=== PATIENT | female | born 1985 | race Hispanic/Latino ===

== ENCOUNTER 2017-09-26 22:39 | Emergency (ER) | payer MEDICAID ==
[2017-09-26 22:47] VITALS: BMI 28.1
[2017-09-26] MEDS ORDERED: DiphenhydrAMINE 50 mg/ml Inj IVP STA (22:51)
[2017-09-26 22:52] VITALS: RESP 18; TEMP 99; O2SAT 99
--- NOTE | 2017-09-26 22:54 | ED PDOC ---
Arrival/HPI - General Time Seen by Provider: 09/26/17 22:48 Historian: Patient - History of Present Illness Narrative History of Present Illness (Text): 09/26/17 22:45 32 year old female, NKDA, no known food allergies, who presents to the Emergency department complaining of left elbow area of skin swelling, hot sensation, and itching after she was bitten by an insect yesterday. Patient denies any difficulty bending/extending left elbow, fever, or chills. Patient states the area feels itchy and hot with pain, no numbness or tingling, no palpitation, no other medical or psychological complaints. Symptom Onset: Gradual Symptom Course: Unchanged Activities at Onset: Light Context: Home Past Medical History - Provider Review Nursing Documentation Reviewed: Yes Family/Social History - Physician Review Nursing Documentation Reviewed: Yes Family/Social History: Unknown Family HX Allergies/Home Meds Allergies/Adverse Reactions: Allergies aspirin Allergy (Verified 09/26/17 22:50) RASH Review of Systems - Physician Review All systems were reviewed & negative as marked: Yes - Review of Systems Constitutional: absent: Fatigue, Fevers Eyes: absent: Vision Changes ENT: absent: Hearing Changes Respiratory: absent: SOB, Cough Cardiovascular: absent: Chest Pain Gastrointestinal: absent: Abdominal Pain, Nausea, Vomiting Skin: Rash, Pruritis, Skin Lesions, Cellulitis. absent: Laceration, Abscess, Ulcer Neurological: absent: Headache, Dizziness Psychiatric: absent: Anxiety, Depression Physical Exam Vital Signs Reviewed: Yes Vital Signs Temp Pulse Resp BP Pulse Ox 09/26/17 22:50 99.0 F 75 18 129/85 99 Temperature: Afebrile Blood Pressure: Normal Pulse: Regular Respiratory Rate: Normal Appearance: Positive for: Well-Appearing, Non-Toxic, Comfortable Pain Distress: Mild Mental Status: Positive for: Alert and Oriented X 3 - Systems Exam Head: Present: Atraumatic, Normocephalic Pupils: Present: PERRL Extroacular Muscles: Present: EOMI Conjunctiva: Present: Normal Mouth: Present: Moist Mucous Membranes Neck: Present: Normal Range of Motion Respiratory/Chest: Present: Clear to Auscultation, Good Air Exchange. No: Respiratory Distress, Accessory Muscle Use Cardiovascular: Present: Regular Rate and Rhythm, Normal S1, S2. No: Murmurs Abdomen: No: Tenderness, Distention, Peritoneal Signs Back: Present: Normal Inspection Upper Extremity: Present: Normal Inspection. No: Cyanosis, Edema Lower Extremity: Present: Normal Inspection. No: Edema Neurological: Present: GCS=15, CN II-XII Intact, Speech Normal Skin: Present: Warm, Dry, Rashes (Lt. dorsal distal humeral near elbow region noted to have patch celluitis blachable erythematous approx. [id number] with no bony tenderness, FROM without limitation, sensation intact, motor 5/5, +radial pulse, capillary refill< 2 seconds, neurovascular intact. ), Normal Color Psychiatric: Present: Alert, Oriented x 3, Normal Insight, Normal Concentration Medical Decision Making ED Course and Treatment: 09/26/17 22:45 Impression: 32 year old female complaining of left elbow area of skin swelling, itching, and hot sensation s/p insect bite. Plan: -- Labs -- IV Benadryl, Decadron, Ancef -- Reassess and disposition 09/27/17 00:02 -Urine hcg is negative -Lab show no acute findings, no elevation of wbc -Pt. feels better with swelling/redness/pain decrease with IV medication. -Skin cellulitis traced by me for follow up and recheck in 2 days. -Discharge home with keflex, topical steroid cream, zyrtec, follow up with your own pmd within 2 days for wound check, return to the ER for any new or worsening signs or symptoms. - Lab Interpretations Lab Results: 09/26/17 23:44 Lab Results 09/26/17 23:44: WBC 9.0, RBC 4.41, Hgb 12.9, Hct 37.3, MCV 84.6, MCH 29.3, MCHC 34.6, RDW 13.0, Plt Count 244, MPV 9.8, Gran % 50.4, Lymph % (Auto) 42.8 H, [place] % (Auto) 4.0, Eos % (Auto) 2.7, Baso % (Auto) 0.1, Gran # 4.51, Lymph # ( Auto) 3.8 H, [place] # (Auto) 0.4, Eos # (Auto) 0.2, Baso # (Auto) 0.01 - Medication Orders Current Medication Orders: Discontinued Medications Dexamethasone (Decadron Inj) 8 mg IVP STAT STA Stop: 09/26/17 22:52 Last Admin: 09/26/17 23:14 Dose: 8 mg IVP Administration Document 09/26/17 23:14 SS (Rec: 09/26/17 23:14 SS [id number]) Charges for Administration # of IVP Administrations 1 Diphenhydramine HCl (Benadryl) 50 mg IVP STAT STA Stop: 09/26/17 22:52 Last Admin: 09/26/17 23:14 Dose: 50 mg IVP Administration Document 09/26/17 23:14 SS (Rec: 09/26/17 23:14 SS [id number]) Charges for Administration # of IVP Administrations 1 Cefazolin Sodium (Ancef 1gm In Ns) 1 gm in 100 mls @ 100 mls/hr IVPB STAT STA Stop: 09/26/17 23:56 Last Admin: 09/26/17 23:14 Dose: 100 mls/hr eMAR Start Stop Document 09/26/17 23:14 SS (Rec: 09/26/17 23:15 SS [id number]) Intravenous Solution Start Date 09/26/17 Start Time 23:14 End Date 09/27/17 End time 00:14 Total Infusion Time 60 - PA / [employer] / Resident Statement MD/DO has reviewed & agrees with the documentation as recorded. - Scribe Statement The provider has reviewed the documentation as recorded by the August Miner Provider Scribe Attestation: All medical record entries made by the Scribe were at my direction and personally dictated by me. I have reviewed the chart and agree that the record accurately reflects my personal performance of the history, physical exam, medical decision making, and the department course for this patient. I have also personally directed, reviewed, and agree with the discharge instructions and disposition. Disposition/Present on Arrival - Present on Arrival Any Indicators Present on Arrival: No History of DVT/PE: No History of Uncontrolled Diabetes: No Urinary Catheter: No History of Decub. Ulcer: No - Disposition Have Diagnosis and Disposition been Completed?: Yes Diagnosis: Insect bite, Cellulitis Disposition: HOME/ ROUTINE Disposition Time: 00:04 Patient Plan: Discharge Condition: IMPROVED Discharge Instructions (ExitCare): Cellulitis (ED) Additional Instructions: -Discharge home with keflex, topical steroid cream, zyrtec, tylenol for pain at home, follow up with your own pmd within 2 days for wound check, return to the ER for any new or worsening signs or symptoms. Prescriptions: Cephalexin [Keflex] 500 mg PO QID #32 capsule Cetirizine HCl [Zyrtec] 10 mg PO DAILY PRN #10 tab.rapdis PRN Reason: Other Hydrocortisone 1% Cream [Cortizone 1% Cream] 1 appl TP BID #30 g Referrals: [facility] [place] - Follow up with primary Forms: WORK NOTE
[2017-09-26] MEDS ORDERED: ceFAZolin 1 gm in NS 1 GM/100 ML BAG IVPB STA (22:57)
[2017-09-26] MEDS ORDERED: Dexamethasone 4 mg/1 ml ONE (23:04)
[2017-09-26 23:55] LABS: BASO # 0.01 K/mm3 (0.0-2.0); BASO % 0.1 % (0.0-3.0); EOS # 0.2 (0.0-0.7); EOS % 2.7 % (1.5-5.0); GRAN # 4.51 (1.4-6.5); GRAN % 50.4 % (50.0-68.0); HEMOGLOBIN 12.9 g/dL (12.0-16.0); LYMPH # 3.8 (1.2-3.4); LYMPH % 42.8 % (22.0-35.0); MEAN CELL VOLUME 84.6 fl (80.0-105.0); MEAN CORPUSCULAR HEMOGLOBIN 29.3 pg (25.0-35.0); MEAN CORPUSCULAR HGB CONC 34.6 g/dl (31.0-37.0); MEAN PLATELET VOLUME 9.8 fl (7.0-11.0); MONO # 0.4 (0.1-0.6); RBC 4.41 10^6/uL (3.5-6.1)
[2017-09-27 00:34] VITALS: BP 129/74; PULSE 86
== END 2017-09-27 00:35 | disposition home or self-care (01) ==
LOC: ED 22:39 → MERGE 22:39 → ED 09-27 00:35
DX: S50.362A Insect bite (nonvenomous) of left elbow, initial encounter (principal); L03.114 Cellulitis of left upper limb; W57.XXXA Bitten or stung by nonvenomous insect and other nonvenomous arthropods, initial encounter
CPT/HCPCS: 85025; 96365; 96375; 99283; J0690; J1100; J1200